=== PATIENT | male | born 1985 | race Caucasian/White ===

== ENCOUNTER 2017-06-03 12:31 | Emergency (ER) | payer SELFPAY ==
[~2017-06-03] VITALS: Ht 182.9 cm; Wt 78.2 kg
[2017-06-03 12:36] VITALS: BP 129/83; TEMP 97.9
[2017-06-03] MEDS ORDERED: ALBUTEROL0.83 MG/ML IH ×2 (12:57→14:05)
[2017-06-03] MEDS ORDERED: PROAIR HFA0.09 MG/AC IH ×2 (12:57→14:05)
[2017-06-03] MEDS ORDERED: CLEOCIN HC150 MG/CAP PO (13:13)
[2017-06-03] MEDS ORDERED: RT ADVAIR 228 DISKUS IH (13:49)
[2017-06-03] MEDS ORDERED: PREDNISONE20 MG PO (13:49)
[2017-06-03 14:13] VITALS: PULSE 96
== END 2017-06-03 14:14 | disposition home or self-care (01) ==
LOC: COL.ER 12:31
DX: J45.901 Unspecified asthma with (acute) exacerbation (principal)
CPT/HCPCS: J7512